=== PATIENT | male | born 1945 | race Caucasian/White ===

== ENCOUNTER → 2018-09-25 | Outpatient (CLI) | payer MEDICARE, OTHER ==
[~2018-09-25] MED LIST: METO25ER; METO50ER PO; NABU500; WARF5 PO
== END | disposition home or self-care (01) ==
LOC: LAB SHORT 14:56 → PLD 14:56
DX: D48.5 Neoplasm of uncertain behavior of skin (principal)
CPT/HCPCS: 88305

== ENCOUNTER 2019-07-14 09:38 | Day surgery (SDC) | payer MEDICARE, OTHER | END 2019-07-14 22:48 | disposition home or self-care (01) | LOC: US 09:38 | DX: C79.89 Secondary malignant neoplasm of other specified sites (principal); Z86.006 Personal history of melanoma in-situ | CPT/HCPCS: 20206; 76942 ==

== ENCOUNTER 2019-08-06 07:59 | Day surgery (SDC) | payer MEDICARE, OTHER ==
[~2019-08-06] VITALS: Ht 180.3 cm; Wt 93.1 kg
[2019-08-06] MEDS ORDERED: LOSA50 PO (09:58)
[2019-08-06] MEDS ORDERED: METF500 PO (09:58)
[2019-08-06] MEDS ORDERED: TAMS.4ER PO (09:59)
[2019-08-06] MEDS ORDERED: OMEP20ER (10:00)
[2019-08-06] MEDS ORDERED: PROAIR DIGIHAL90 MCG (10:01)
--- NOTE | 2019-08-06 10:42 | NUR ---
Ambulatory in Day Surgery. Surgical site prepped with 2% Chlorhexidine cloth wipe. History, Chart, Medications and Allergies reviewed before start of procedure.Lungs clear T/O to Auscultation. Patient confirms NPO status and agrees with scheduled surgery. Pre-Op teaching done. Pt verbalizes understanding. Patient States Post-Procedure ride home has been arranged. Patient reports completing Chlorhexadine shower X2 prior to admission to hospital.
--- NOTE | 2019-08-06 13:48 | NUR ---
PT DISCHARGED HOME. PT VERBALIZES UNDERSTANDING OF DC INTSTUCTIONS, SURGICAL SITE CARE, PAIN MANAGEMENT, AND WHEN TO CONTACT DR ACKERMAN FOR QUESTIONS CONCERNING HIS RECOVERY. NO ACUTE CHANGES AT END OF MY CARE.
[2019-08-12 13:56] LABS: Performing Lab SYMBIODX; Test Name BRAF
== END 2019-08-06 22:43 | disposition home or self-care (01) ==
LOC: NM 07:59 → ORSCMMR 07:59 → NM 09:00
PROVIDERS: Internal Medicine Hematology & Oncology; Surgery
PROC: 0JB70ZX Excision of Back Subcutaneous Tissue and Fascia, Open Approach, Diagnostic (ICD-10-PCS; principal; 2019-08-06 11:00)
DX: C43.9 Malignant melanoma of skin, unspecified (principal); I10 Essential (primary) hypertension; I48.91 Unspecified atrial fibrillation; Z79.01 Long term (current) use of anticoagulants; E78.5 Hyperlipidemia, unspecified; R73.03 Prediabetes; Z79.899 Other long term (current) drug therapy; J45.909 Unspecified asthma, uncomplicated
CPT/HCPCS: 78195; 81210; 88305; 88307; 88381; A9520; J0690; J1100; J2405; J2704; J3010; J7120

== ENCOUNTER 2019-08-21 09:40 | Day surgery (SDC) | payer MEDICARE, OTHER ==
[~2019-08-21 09:40] MED LIST changes: +LOSA50 PO; +METF500 PO; +OMEP20ER; +PROAIR DIGIHAL90 MCG; +TAMS.4ER PO
== END 2019-08-21 22:41 | disposition home or self-care (01) ==
LOC: US 09:40
DX: E04.1 Nontoxic single thyroid nodule (principal)
CPT/HCPCS: 10005

== ENCOUNTER → 2020-07-17 | Outpatient (CLI) | payer MEDICARE, OTHER ==
[~2020-07-17] MED LIST changes: +HYDCHL25 PO; +Prednisone10 MG PO
[2020-07-18 13:19] LABS: Stool Occult Bld Immuno 1 Negative (NEGATIVE)
== END | disposition home or self-care (01) ==
LOC: LAB SHORT 17:45 → LAB SRC 17:45 → LAB SHORT 07-18 08:53
PROVIDERS: Internal Medicine Hematology & Oncology
DX: C43.59 Malignant melanoma of other part of trunk (principal)
CPT/HCPCS: G0328

== ENCOUNTER 2020-08-10 00:21 | Day surgery (SDC) | payer MEDICARE, OTHER ==
[~2020-08-10] VITALS: Wt 88.5 kg
[~2020-08-10 00:21] MED LIST changes: -HYDCHL25 PO; -Prednisone10 MG PO
[2020-08-10] MEDS ORDERED: Prednisone10 MG PO (13:51)
[2020-08-10] MEDS ORDERED: HYDCHL25 PO (13:51)
[2020-08-10 18:53] LABS: BASOPHILS ABSOLUTE AUTO 0.01 K/mm3 (0.00-0.23); BASOPHILS PERCENT AUTO 0 % (0-2); EOSINOPHILS ABSOLUTE AUTO 0.02 K/mm3 (0.00-0.68); EOSINOPHILS PERCENT AUTO 0 % (0-6); Hematocrit 24.5 % (37.0-53.0); Hemoglobin 8.2 g/dL (13.5-17.5); IMMATURE GRAN ABSOLUTE AUTO 0.08 K/mm3 (0.00-0.10); IMMATURE GRAN PERCENT AUTO 1 % (0-1); LYMPHOCYTES ABSOLUTE AUTO 0.69 K/mm3 (0.84-5.20); LYMPHOCYTES PERCENT AUTO 7 % (21-46); MONOCYTES ABSOLUTE AUTO 1.21 K/mm3 (0.16-1.47); MONOCYTES PERCENT AUTO 13 % (4-13); Mean Corpuscular HGB 30.3 pg (26.0-34.0); Mean Corpuscular HGB Conc 33.5 g/dL (31.5-36.5); Mean Corpuscular Volume 90 fL (80-100); Mean Platelet Volume 10.9 fL (9.1-12.4); NEUTROPHILS ABSOLUTE AUTO 7.54 K/mm3 (1.96-9.15); NEUTROPHILS PERCENT AUTO 79 % (41-73); Platelet Count 305 K/mm3 (150-400); RDW Coefficient Variation 14.3 % (11.7-14.2); RDW Standard Deviation 46.3 fL (35.1-46.3); Red Blood Cell Count 2.71 M/mm3 (4.30-5.90); White Blood Cell Count 9.55 K/mm3 (4.00-11.30)
== END 2020-08-10 18:33 | disposition home or self-care (01) ==
LOC: ATC 00:21
PROVIDERS: Family Medicine
DX: D63.8 Anemia in other chronic diseases classified elsewhere (principal); C43.59 Malignant melanoma of other part of trunk; E86.0 Dehydration; C61 Malignant neoplasm of prostate; I10 Essential (primary) hypertension; I48.21 Permanent atrial fibrillation; E78.49 Other hyperlipidemia; R73.01 Impaired fasting glucose; K21.9 Gastro-esophageal reflux disease without esophagitis; E04.2 Nontoxic multinodular goiter; Z79.01 Long term (current) use of anticoagulants; Z87.891 Personal history of nicotine dependence
CPT/HCPCS: 36415; 36430; 85025; 86850; 86900; 86901; 86920; 96360; J7030; J7050; P9016

== ENCOUNTER → 2020-08-12 | Outpatient (CLI) | payer MEDICARE, OTHER ==
[~2020-08-12] MED LIST changes: +HYDCHL25 PO; +Prednisone10 MG PO
[2020-08-13 11:34] LABS: Stool Occult Bld Immuno 1 Negative (NEGATIVE)
== END | disposition home or self-care (01) ==
LOC: LAB SHORT 09:30
PROVIDERS: Internal Medicine Hematology & Oncology
DX: C43.59 Malignant melanoma of other part of trunk (principal)
CPT/HCPCS: G0328

== ENCOUNTER 2020-10-13 09:01 | Day surgery (SDC) | payer MEDICARE, OTHER | END 2020-10-13 18:10 | disposition home or self-care (01) | LOC: ATC 09:01 | DX: C43.59 Malignant melanoma of other part of trunk (principal); D63.8 Anemia in other chronic diseases classified elsewhere; I10 Essential (primary) hypertension; I48.21 Permanent atrial fibrillation; K21.9 Gastro-esophageal reflux disease without esophagitis; Z79.01 Long term (current) use of anticoagulants; Z87.891 Personal history of nicotine dependence; Z85.46 Personal history of malignant neoplasm of prostate | CPT/HCPCS: 36415; 36430; 86850; 86900; 86901; 86923; J7050; P9016 ==